=== PATIENT | female | born 2000 | race Two or more races ===

== ENCOUNTER 2018-03-23 09:39 | Emergency (ER) | payer OTHER ==
[2018-03-23 10:45] LABS: BASO % 0.2 % (0.0-1.0); EOS # 0.1 10^3/uL (0.0-0.50); EOS % 1.7 % (0.0-3.0); HEMATOCRIT 38.1 % (36.0-47.0); HEMOGLOBIN 11.9 g/dl (12.0-15.5); IMMATURE GRANULOCYTE % 0.2 % (0-3.0); LYMPH # 2.9 10^3/uL (1.5-6.5); MEAN CORPUSCULAR HEMOGLOBIN 23.3 pg (27.0-33.0); MEAN CORPUSCULAR HGB CONC 31.2 g/dl (32.0-36.5); MEAN CORPUSCULAR VOLUME 74.6 fl (80.0-96.0); MONO # 0.7 10^3/uL (0.0-0.8); MONO % 8.3 % (0.0-5.0); NEUTROPHILS # 4.6 10^3/uL (1.8-7.7); NEUTROPHILS % 54.6 % (36.0-66.0); PLATELET COUNT, AUTOMATED 405 10^3/uL (150-450); RED BLOOD COUNT 5.11 10^6/uL (4.00-5.40); RED CELL DISTRIBUTION WIDTH 14.5 % (11.5-14.5); WHITE BLOOD COUNT 8.4 10^3/uL (4.0-10.0)
[2018-03-23 10:48] LABS: APPEARANCE, URINE CLEAR (CLEAR); BACTERIA, URINE AUTO NEGATIVE (NEGATIVE); BILIRUBIN, URINE AUTO NEGATIVE (NEGATIVE); BLOOD, URINE BLOOD 1+ (NEGATIVE); COLOR, URINE STRAW (YELLOW); GLUCOSE, URINE (UA) AUTO NEGATIVE (NEGATIVE); KETONE, URINE AUTO NEGATIVE (NEGATIVE); LEUKOCYTE ESTERASE, URINE AUTO NEGATIVE (NEGATIVE); NITRITE, URINE AUTO NEGATIVE (NEGATIVE); PROTEIN, URINE AUTO NEGATIVE (NEGATIVE); RBC, URINE AUTO 2 /HPF (0-3); SPECIFIC GRAVITY URINE AUTO 1.008 (1.002-1.035); SQUAMOUS EPITHELIAL CELL UR AU 1 /HPF (0-6); UROBILINOGEN, URINE AUTO 0.2 mg/dL (0.0-2.0); WBC, URINE AUTO 0 /HPF (0-3)
[2018-03-23 11:15] LABS: ANION GAP 8 MEQ/L (8-16); BLOOD UREA NITROGEN 8 MG/DL (7-18); CALCIUM LEVEL 8.8 MG/DL (8.5-10.1); CARBON DIOXIDE LEVEL 25 MEQ/L (21-32); CHLORIDE LEVEL 106 MEQ/L (98-107); CREATININE FOR GFR 0.63 MG/DL (0.55-1.30); GLUCOSE, FASTING 97 MG/DL (70-100); HCG, SERUM QUANTITATIVE 632 MIU/ML; POTASSIUM SERUM 4.1 MEQ/L (3.5-5.1); SODIUM LEVEL 139 MEQ/L (136-145)
== END 2018-03-23 12:10 | disposition home or self-care (01) ==
LOC: M ED 09:39
DX: O20.9 Hemorrhage in early pregnancy, unspecified (principal); Z3A.01 Less than 8 weeks gestation of pregnancy; Z88.1 Allergy status to other antibiotic agents; Z88.2 Allergy status to sulfonamides
CPT/HCPCS: 76801

== ENCOUNTER 2018-03-24 21:45 | Emergency (ER) | payer OTHER ==
[2018-03-24 22:37] LABS: BASO # 0.1 10^3/uL (0.0-0.2); BASO % 0.4 % (0.0-1.0); EOS # 0.3 10^3/uL (0.0-0.50); HEMATOCRIT 37.8 % (36.0-47.0); HEMOGLOBIN 11.8 g/dl (12.0-15.5); IMMATURE GRANULOCYTE % 0.3 % (0-3.0); LYMPH # 4.3 10^3/uL (1.5-6.5); LYMPH % 33.4 % (24.0-44.0); MEAN CORPUSCULAR HEMOGLOBIN 23.7 pg (27.0-33.0); MEAN CORPUSCULAR HGB CONC 31.2 g/dl (32.0-36.5); MEAN CORPUSCULAR VOLUME 75.9 fl (80.0-96.0); MONO # 1.1 10^3/uL (0.0-0.8); MONO % 8.4 % (0.0-5.0); NEUTROPHILS # 7.2 10^3/uL (1.8-7.7); NEUTROPHILS % 55.5 % (36.0-66.0); PLATELET COUNT, AUTOMATED 379 10^3/uL (150-450); RED BLOOD COUNT 4.98 10^6/uL (4.00-5.40); RED CELL DISTRIBUTION WIDTH 14.7 % (11.5-14.5); WHITE BLOOD COUNT 12.9 10^3/uL (4.0-10.0)
[2018-03-24] MEDS: ACETAMINOPHEN 325 MG TAB PO (22:40)
[2018-03-24 22:51] LABS: HCG, SERUM QUANTITATIVE 315 MIU/ML
== END 2018-03-24 23:26 | disposition home or self-care (01) ==
LOC: M ED 21:45
DX: O20.0 Threatened abortion (principal); Z88.2 Allergy status to sulfonamides; Z88.8 Allergy status to other drugs, medicaments and biological substances
CPT/HCPCS: 84702

== ENCOUNTER 2018-04-10 21:25 | Emergency (ER) | payer OTHER ==
[2018-04-10] MEDS: IBUPROFEN 800 MG TAB PO (22:56)
== END 2018-04-10 23:00 | disposition home or self-care (01) ==
LOC: M ED 21:25
DX: S60.221A Contusion of right hand, initial encounter (principal); W23.0XXA Caught, crushed, jammed, or pinched between moving objects, initial encounter; Y92.099 Unspecified place in other non-institutional residence as the place of occurrence of the external cause; Y93.9 Activity, unspecified; Y99.9 Unspecified external cause status; Z79.3 Long term (current) use of hormonal contraceptives; Z88.8 Allergy status to other drugs, medicaments and biological substances; Z88.2 Allergy status to sulfonamides
CPT/HCPCS: 73130

== ENCOUNTER 2018-07-21 18:21 | Emergency (ER) | payer OTHER ==
[2018-07-21 19:48] LABS: KETONE, URINE AUTO RFX NEGATIVE (NEGATIVE); LEUKOCYTE ESTERASE UR AUTO RFX NEGATIVE (NEGATIVE); MUCUS, URINE RFX SMALL (NEGATIVE); NITRITE, URINE AUTO RFX NEGATIVE (NEGATIVE); RBC, URINE AUTO RFX 2 /HPF (0-3); SPECIFIC GRAVITY UR AUTO RFX 1.016 (1.002-1.035); SQUAM EPITHELIAL CELL UR AURFX 1 /HPF (0-6); WBC, URINE AUTO RFX 1 /HPF (0-3)
[2018-07-21] MEDS: metroNIDAZOLE (FLAGYL) 500 MG TAB PO (21:51)
[2018-07-21 22:48] LABS: CHLAMYDIA DNA AMPLIFICATION NEGATIVE (NEGATIVE); GC DNA AMPLIFICATION NEGATIVE (NEGATIVE)
== END 2018-07-21 21:55 | disposition home or self-care (01) ==
LOC: M ED 18:21
DX: N76.0 Acute vaginitis (principal)
CPT/HCPCS: 76856

== ENCOUNTER 2018-12-06 19:10 | Emergency (ER) | payer OTHER ==
[~2018-12-06] VITALS: Ht 167.6 cm; Wt 72.7 kg
[2018-12-06 19:10] VITALS: BP 132/74
[~2018-12-06 19:10] MED LIST: FLAG500T PO; IBUP80TA PO; LEVORA
[2018-12-06] MEDS ORDERED: IBUP80TA PO (19:17)
[2018-12-06] MEDS ORDERED: ACET500T15 PO (19:17)
[2018-12-06] MEDS ORDERED: NS 1,000 ML IV ONE (19:45)
[2018-12-06] MEDS ORDERED: MORPHINE 2 MG/ML 1ML SYRINGE (J2270) IV ONE (19:45)
[2018-12-06 20:05] LABS: BASO % 0.4 % (0.0-1.0); EOS # 0.3 10^3/uL (0.0-0.50); EOS % 3.3 % (0.0-3.0); HEMATOCRIT 38.7 % (36.0-47.0); HEMOGLOBIN 12.5 g/dl (12.0-15.5); LYMPH # 3.9 10^3/uL (1.5-6.5); LYMPH % 42.7 % (24.0-44.0); MEAN CORPUSCULAR HEMOGLOBIN 24.6 pg (27.0-33.0); MEAN CORPUSCULAR HGB CONC 32.3 g/dl (32.0-36.5); MEAN CORPUSCULAR VOLUME 76.2 fl (80.0-96.0); MONO # 0.7 10^3/uL (0.0-0.8); MONO % 7.2 % (0.0-5.0); NEUTROPHILS # 4.2 10^3/uL (1.8-7.7); NEUTROPHILS % 46.3 % (36.0-66.0); PLATELET COUNT, AUTOMATED 363 10^3/uL (150-450); RED BLOOD COUNT 5.08 10^6/uL (4.00-5.40); WHITE BLOOD COUNT 9.2 10^3/uL (4.0-10.0)
[2018-12-06 20:39] LABS: BLOOD UREA NITROGEN 12 MG/DL (7-18); CALCIUM LEVEL 8.7 MG/DL (8.5-10.1); CARBON DIOXIDE LEVEL 27 MEQ/L (21-32); CHLORIDE LEVEL 105 MEQ/L (98-107); CREATININE FOR GFR 0.69 MG/DL (0.55-1.30); GLUCOSE, FASTING 84 MG/DL (70-100); SODIUM LEVEL 140 MEQ/L (136-145)
--- NOTE | 2018-12-06 22:12 | REPVR ---
EXAM: US Pelvis Complete, Transabdominal EXAM DATE/TIME: 12/06/2018 9:20 PM CLINICAL HISTORY: 18 years old, female; Pain; Pelvic pain; Prior surgery; Surgery date: 3-7 days post-operative; Surgery type: D&c 4 days ago for miscarriage; Additional info: Central pelvic pain S/P d TECHNIQUE: Real-time transabdominal pelvic ultrasound with image documentation. Complete exam. COMPARISON: US PELVIC NON-OB COMPLETE 07/21/2018 8:38 PM FINDINGS: Uterus/cervix: The uterus measures 8 CM in length by 3.8 CM in AP dimension by 5.9 cm transverse dimension. The uterus is anteverted. The endometrium measures 7 mm in thickness. In the uppermost aspect of the endometrium there are 2 tiny fluid-filled structure and probable small areas of residual blood. There is a 1.3 CM structure of the right ovary probably a hemorrhagic cyst or corpus luteum. Right adnexa: The right ovary measures 3.5 CM in length by 1.6 CM in thickness. Left adnexa: The left ovary measures 1.7 CM in length by 1 CM in thickness. Free fluid: There is no evidence of free fluid in the cul-de-sac. Bladder: The urinary bladder is empty and cannot be completely evaluated. Other findings: There is vascular flow both ovaries. IMPRESSION: 1. The endometrium measures 7 mm in thickness. 2 tiny fluid structures in the upper endometrium probably small areas of serous fluid. 2. Probable 1.3 CM hemorrhagic corpus luteum cyst right ovary. Electronically signed by: Stephan Ferguson On 12/06/2018 22:11:41 PM
[2018-12-06] MEDS ORDERED: NORCO 5/325MG TABLET (BULK FOR ED) PO ONE (23:15)
--- NOTE | 2018-12-07 07:26 | ED PDOC ---
Post-Departure Follow-Up mo armenta,sebastian faaxed formalreport of pelvic us for fu Ela James MD Dec 07, 2018 07:26
== END 2018-12-06 23:34 | disposition home or self-care (01) ==
LOC: M ED 19:10
DX: G89.18 Other acute postprocedural pain (principal); R10.2 Pelvic and perineal pain; Z88.2 Allergy status to sulfonamides; Z88.8 Allergy status to other drugs, medicaments and biological substances
CPT/HCPCS: 76830; 76856; 80048; 81001; 85025; 93976; 96361; 96374; 99284; J2270

== ENCOUNTER → 2018-12-15 | Outpatient (REF) | payer OTHER ==
[~2018-12-15] MED LIST changes: +ACET500T15 PO
[2018-12-15 15:02] LABS: CHLAMYDIA DNA AMPLIFICATION NEGATIVE (NEGATIVE); GC DNA AMPLIFICATION NEGATIVE (NEGATIVE)
== END ==
LOC: M LAB REF 12:45
PROVIDERS: ATTEND Specialist
DX: R10.2 Pelvic and perineal pain (principal)

== ENCOUNTER 2018-12-25 13:00 | Inpatient (IN) | payer OTHER ==
[~2018-12-25] VITALS: Ht 167.6 cm; Wt 84.4 kg
[2018-12-25] MEDS ORDERED: ONDANSETRON 4 MG TAB (S0181) PO PRN (14:30)
--- NOTE | 2018-12-25 15:53 | HPE ---
DATE OF ADMISSION: 12/25/2018 A 18-year-old G3, P0-0-3-0 female who presents with 2-3 weeks of diffuse, constant lower abdominal pain. Pain affects her ability to function. She denies fevers or chills. She initially had some light blood-tinged discharge, which has since resolved. She denies fevers. She had dilatation and curettage (D and C) procedure for a missed on 12/02/[address] Castaneda at [facility]. Her pain started shortly after the procedure, within a few days. She was evaluated with an office ultrasound that showed no retained products of conception. She was noted to have tenderness on exam. She was subsequently treated with an outpatient regimen for pelvic inflammatory disease (PID) consisting of ceftriaxone and doxycycline with no relief. She continues to have pain. MEDICAL HISTORY: Noncontributory. SURGICAL HISTORY: None. OBSTETRICAL HISTORY: Therapeutic (TAB) times two, spontaneous (SAB) times one. ALLERGIES: 1. SULFA. 2. CIPRO. SOCIAL HISTORY: Patient lives in [place]. She denies cigarettes, alcohol, or drug use. Her partner is involved and is in the . FAMILY HISTORY: Noncontributory. PHYSICAL EXAMINATION: Blood pressure 118/74, pulse 94, weight 172 pounds. She is in No apparent distress. HEAD AND NECK; Normal. LUNGS: Clear. HEART: Regular rate and rhythm. ABDOMEN: Soft, diffusely tender in the lower abdomen. No rebound. No guarding. Sterile vaginal exam reveals physiologic discharge, 1+ cervical and 2+ uterine tenderness. There are no masses palpable. EXTREMITIES: Nontender. ASSESSMENT: A 18-year-old G3, P0-0-3-0 female with probably postabortal endometritis, possible pelvic inflammatory disease. Patient failed outpatient treatment. Plan is to admit for inpatient treatment of pelvic inflammatory disease. Patient was admitted on 12/25/2018. Will treat with gentamicin and clindamycin. Will do blood work and cultures.
[2018-12-25 16:00] VITALS: BP 142/79
[2018-12-25] MEDS ORDERED: DOXY100T (16:12)
[2018-12-25 17:15] LABS: BASO % 0.4 % (0.0-1.0); EOS # 0.4 10^3/uL (0.0-0.50); EOS % 3.7 % (0.0-3.0); HEMATOCRIT 36.7 % (36.0-47.0); HEMOGLOBIN 11.6 g/dl (12.0-15.5); LYMPH # 3.7 10^3/uL (1.5-6.5); LYMPH % 33.1 % (24.0-44.0); MEAN CORPUSCULAR HGB CONC 31.6 g/dl (32.0-36.5); MEAN CORPUSCULAR VOLUME 75.8 fl (80.0-96.0); MONO # 0.7 10^3/uL (0.0-0.8); MONO % 6.3 % (0.0-5.0); NEUTROPHILS # 6.4 10^3/uL (1.8-7.7); NEUTROPHILS % 56.3 % (36.0-66.0); PLATELET COUNT, AUTOMATED 347 10^3/uL (150-450); RED BLOOD COUNT 4.84 10^6/uL (4.00-5.40); WHITE BLOOD COUNT 11.3 10^3/uL (4.0-10.0)
[2018-12-25] MEDS: CLINDAMYCIN 900 MG in APPROPRIATE DILUENT 1 EA IV SCH (17:32)
[2018-12-25] MEDS: NS 1,000 ML IV SCH (17:32)
[2018-12-25 17:38] LABS: ALBUMIN 3.5 GM/DL (3.2-5.2); ALT/SGPT 15 U/L (12-78); BILIRUBIN,TOTAL 0.1 MG/DL (0.2-1.0); BLOOD UREA NITROGEN 12 MG/DL (7-18); CALCIUM LEVEL 8.3 MG/DL (8.5-10.1); CARBON DIOXIDE LEVEL 28 MEQ/L (21-32); CHLORIDE LEVEL 105 MEQ/L (98-107); CREATININE FOR GFR 0.68 MG/DL (0.55-1.30); GLUCOSE, FASTING 83 MG/DL (70-100); POTASSIUM SERUM 3.8 MEQ/L (3.5-5.1); SODIUM LEVEL 139 MEQ/L (136-145); TOTAL PROTEIN 7.2 GM/DL (6.4-8.2)
[2018-12-25 17:47] LABS: CPK CREATINE PHOSPHOKINASE 50 U/L (26-192); HCG, SERUM QUANTITATIVE 55 MIU/ML
[2018-12-25] MEDS: GENTAMICIN 80 MG in APPROPRIATE DILUENT 1 EA IV SCH (18:55)
[2018-12-25] MEDS ORDERED: IBUPROFEN 800 MG TAB PO SCH ×2 (19:00→22:00)
[2018-12-25 20:00] VITALS: BP 129/71
--- NOTE | 2018-12-25 20:25 | REPVR ---
EXAM: US Pelvis Complete, Transabdominal EXAM DATE/TIME: 12/25/2018 7:41 PM CLINICAL HISTORY: 18 years old, female; Pain; Pelvic pain; Prior surgery; Surgery date: <1 month; Surgery type: D&c after misscarriage; Additional info: Pid TECHNIQUE: Real-time transabdominal pelvic ultrasound with image documentation. Complete exam. COMPARISON: US ASSOCIATE EMBALMER/FUNERAL DIRECTOR 12/06/2018 8:52 PM FINDINGS: Uterus/cervix: The uterus measures 7.2 cm in its cephalocaudad dimension and 3.7 x 4.7 cm in its AP and lateral dimensions transabdominal. The uterus measures 8.6 cm in its cephalocaudad dimension and 3.5 x 5.7 cm in its AP and lateral dimensions transvaginal. The endometrium measures 4 mm transabdominal and 7 mm transvaginal. Right adnexa: The right ovary measures 1.9 x 1.7 x 1.4 cm and demonstrates blood flow Left adnexa: The left ovary measures 1.2 x 1.3 x 2.3 cm and demonstrates blood flow. Free fluid: Trace fluid in the cul-de-sac which is physiologic. Bladder: Normal. IMPRESSION: Negative pelvic sonogram. Trace endometrial fluid is no longer seen since 12/06/2018. Electronically signed by: Joaquin Ramos On 12/25/2018 20:23:19 PM
[2018-12-25] MEDS: ACETAMINOPHEN 500 MG TAB PO PRN (20:42)
[2018-12-26] MEDS: GENTAMICIN 80 MG in APPROPRIATE DILUENT 1 EA IV SCH ×3 (00:57→17:44)
[2018-12-26] MEDS: IBUPROFEN 800 MG TAB PO SCH ×4 (00:58→18:50)
[2018-12-26 04:00] VITALS: BP 109/62
[2018-12-26 08:00] VITALS: BP 130/72
[2018-12-26] MEDS: CLINDAMYCIN 900 MG in APPROPRIATE DILUENT 1 EA IV SCH ×4 (08:43→17:05)
[2018-12-26] MEDS: ACETAMINOPHEN 500 MG TAB PO PRN (08:44)
--- NOTE | 2018-12-26 13:37 | REP ---
Renal ultrasound: The right kidney measures 10.3 x 5.44 point 6 cm. Left kidney measures 10.9 x 4.6 x 5.1 cm. The kidneys are normal size. Renal cortical echogenicity is normal bilaterally. There is no hydronephrosis on the right on the left. There are no renal calculi. There are no solid or cystic renal masses. Bladder ultrasound: With color Doppler assessment there are bilateral ureteral jets into the urinary No bladder wall masses or polyps are identified. Impression: Essentially negative renal and bladder ultrasound. Electronically Signed by Kennedy Hanson MD 12/26/2018 01:27 P
[2018-12-26 16:00] VITALS: BP 118/60
[2018-12-26] MEDS: NS 1,000 ML IV SCH (17:44)
[2018-12-26 20:00] VITALS: BP 131/88
[2018-12-26] MEDS ORDERED: PERCOCET 5MG/325MG TAB PO PRN (22:45)
[2018-12-27] MEDS: IBUPROFEN 800 MG TAB PO SCH ×2 (00:47→06:37)
[2018-12-27] MEDS: CLINDAMYCIN 900 MG in APPROPRIATE DILUENT 1 EA IV SCH ×2 (00:47→08:50)
[2018-12-27] MEDS: GENTAMICIN 80 MG in APPROPRIATE DILUENT 1 EA IV SCH (02:00)
--- NOTE | 2018-12-27 02:38 | NUR ---
Progress note S: Pelvic pain is unchanged, uncomfortable O: LK=027/88 P=79 AF NAD Abd: soft, tender lower abdomen, no rebound, no guarding, ND no CVA tenderness ext: NT Renal ultrasound: normal A/P 18 yo with persistent pelvic pain of unclear etiology, possible PID Currently on Gent/Clinda Get CT abd/pelvis in morning discussed possibility of endometriosis Discussed possibility of diagnostic laparoscopy Percocet tablet for pain Porter Pham MD
[2018-12-27 04:00] VITALS: BP 124/64
[2018-12-27 07:50] VITALS: BP 119/69
--- NOTE | 2018-12-27 10:30 | REP ---
CT of the abdomen pelvis without IV or bowel contrast for pelvic pain: Comparison is the pelvic ultrasound dated 2018. The visualized lung hoover are unremarkable. The unenhanced hepatic parenchyma, gallbladder, pancreas, spleen, adrenals, kidneys and abdominal aorta are unremarkable. There is no bowel distension or obstruction. The bowel and mesentery are unremarkable. Pelvis: The appendix and terminal ileum are unremarkable. The uterus and adnexa are unremarkable. There are phleboliths . The bladder is unremarkable. There is no adenopathy or ascites. The pelvic bowel loops are unremarkable. Impression: Essentially negative CT of the abdomen and pelvis. Electronically Signed by Kennedy Hanson MD 12/27/2018 08:31 A
[2018-12-27] MEDS ORDERED: OXYC1TAB23 PO ×2 (10:41→14:41)
--- NOTE | 2018-12-27 16:55 | DSES ---
DATE OF ADMISSION: 12/25/2018 DATE OF DISCHARGE: 12/27/2018 18-year-old, G3, P0-0-3-0 female presents with diffuse, constant, sharp pelvic pain the past month. Patient underwent suction dilation and curettage (D and C) procedure on 12/02/2018 at [facility] by Dr. Castaneda. Ever since that procedure, she had pain as described. Pain effects her quality of life, effects intercourse. She denies fevers, chills, nausea, or vomiting. She was treated with an outpatient regimen for endometritis or possible pelvic inflammatory disease which she had no relief. HOSPITAL COURSE: The patient was admitted on 12/25/2018 with possible diagnosis of pelvic inflammatory disease with failed outpatient management in a 18-year-old. Patient was started on IV gentamicin and clindamycin for this purpose. She received pain management with ibuprofen and Tylenol. Blood work was all normal in the hospital. Repeat pelvic ultrasound was normal. She had normal inflammatory markers such as ESR and CRP. White count was normal. She made no clinical improvement on the antibiotics. She eventually was given an oral narcotic for pain management. CT scan was performed to look for evidence of kidney stones as well as a renal ultrasound. Studies were completely negative. On hospital day #3, the decision was made that we would discharge the patient. Exact diagnosis not clear, we did entertain a diagnosis of possible endometriosis, however confirmation of this would have to occur at a later date. ADMISSION DIAGNOSES: Possible endometritis versus pelvic inflammatory disease. DISCHARGE DIAGNOSES: Possible endometriosis, chronic pain. PLAN: The patient will followup with Dr. Pham this week. The patient is actually [place] out of [place] within the next 2 weeks. The patient will be given a limited number of narcotic pills for pain management. She will pursue workup for endometriosis in the future.
== END 2018-12-27 11:24 | disposition home or self-care (01) | DRG 779 ==
LOC: M PED 15:09
PROVIDERS: ADMIT Specialist; ATTEND Specialist
DX: O03.5 Genital tract and pelvic infection following complete or unspecified spontaneous abortion (principal)